=== PATIENT | female | born 1995 | race Caucasian/White ===

== ENCOUNTER 2020-01-07 02:53 | Emergency (ER) | payer OTHER ==
[~2020-01-07] VITALS: Ht 157.5 cm; Wt 67.1 kg
[2020-01-07 03:05] VITALS: BP 128/93
--- NOTE | 2020-01-07 03:07 | NUR ---
PT AMBULATED TO BED 11 WITH STEADY GAIT.
--- NOTE | 2020-01-07 03:29 | NUR ---
XRAY AT BEDSIDE.
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
--- NOTE | 2020-01-07 03:41 | NUR ---
ERMD AT BEDSIDE.
[2020-01-07 04:00] VITALS: BP 128/93
--- NOTE | 2020-01-07 04:00 | NUR ---
Right wrist splint placed by EMT. CMS intact, Cap refill <3 seconds, denies any numbness and tingling at site. Provided education on the use of proper slint care and demonstrated return back.
--- NOTE | 2020-01-07 04:00 | NUR ---
pts right wrist was placed in a wrist splint. pts [facility].
== END 2020-01-07 04:00 | disposition home or self-care (01) ==
LOC: MED 02:53
DX: M25.531 Pain in right wrist (principal)
CPT/HCPCS: 29125; 73110; 99283; Q0092

== ENCOUNTER 2021-07-08 21:50 | Emergency (ER) | payer OTHER ==
[~2021-07-08] VITALS: Ht 157.5 cm; Wt 66.7 kg
[2021-07-08 22:30] VITALS: BP 120/70
--- NOTE | 2021-07-08 22:34 | NUR ---
patient to the bathroom for urine collection
[2021-07-08] MEDS ORDERED: KETOROLAC 60 MG/2 ML VIAL IM ONE (22:45)
--- NOTE | 2021-07-08 22:49 | NUR ---
X-Ray at bedside.
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
[2021-07-08] MEDS ORDERED: ACETAMINOPHEN EXTRA STRENGTH 500 MG TAB PO ONE (23:10)
--- NOTE | 2021-07-08 23:54 | NUR ---
Dr. Eddy examining patient.
--- NOTE | 2021-07-09 00:04 | NUR ---
Pt report given to LOWELL VAUGHAN. Transfer of care at this time.
--- NOTE | 2021-07-09 00:05 | NUR ---
RECEIVED REPORT FROM DONG CAMERON FOR TRANSFER OF CARE.
--- NOTE | 2021-07-09 00:10 | NUR ---
PATIENT IS STABLE AND AWAKE. A&OX4. VERBALLY RESPONSIVE AND ABLE TO COMMUNICATE NEEDS. ON ROOM AIR WITH NO APPARENT S/SX OF ACUTE DISTRESS. VSS. PATIENT'S SKIN IS INTACT. AMBULATORY. CONTINENT OF VOID AND URINE. PER DOCTOR, PATIENT WILL BE SPLINTED. WILL CONTINUE TO MONITOR.
[2021-07-09] MEDS ORDERED: ACET-8386 PO (02:17)
[2021-07-09 02:29] VITALS: BP 109/63
--- NOTE | 2021-07-09 02:34 | NUR ---
Patient discharged with v/s stable. Written and verbal after care instructions given and explained. Patient alert, oriented and verbalized understanding of instructions. Ambulatory with steady gait. All questions addressed prior to discharge. ID band removed. Patient advised to follow up with PMD. Rx of NORCO-5 given. Patient REVIEWED on indication of medication including possible reaction and side effects. Opportunity to ask questions provided and answered.
--- NOTE | 2021-07-09 02:34 | NUR ---
The patient's care was reviewed and supervised by Elaina Donald RN.
== END 2021-07-09 02:34 | disposition home or self-care (01) ==
LOC: MED 21:50
DX: S62.310A Displaced fracture of base of second metacarpal bone, right hand, initial encounter for closed fracture (principal); F17.200 Nicotine dependence, unspecified, uncomplicated; W22.8XXA Striking against or struck by other objects, initial encounter; Y93.89 Activity, other specified; Y92.89 Other specified places as the place of occurrence of the external cause; Y99.8 Other external cause status
CPT/HCPCS: 73130; 81025; 99283